=== PATIENT | female | born 1985 | race Caucasian/White ===

== ENCOUNTER 2019-08-19 08:00 | Day surgery (SDC) | payer OTHER ==
[2019-08-15 15:01] LABS: BASOPHILS 0.2 % (0-2); EOSINOPHILS 0.9 % (0-7); HEMATOCRIT 31.5 % (36.0-48.0); HEMOGLOBIN 9.1 g/dL (12-16); IMMATURE GRANULOCYTES 0.2 % (0-5); LYMPHOCYTES 31.4 % (15-50); MCH 21.2 pg (26.0-34.0); MCHC 28.9 g/dL (31.0-37.0); MCV 73.3 fL (80.0-100.0); MEAN PLATELET VOLUME 10.6 fL (7.4-10.4); MONOCYTES 6.5 % (2-11); NEUTROPHILS 60.8 % (40-80); PLATELET COUNT 236 10x3/uL (130-400); RDW 16.7 % (11.5-14.5); WBC 6.3 10x3/uL (4.8-10.8)
[~2019-08-19] VITALS: Ht 165.1 cm; Wt 65.3 kg
--- NOTE | ~2019-08-19 | OP ---
PATIENT NAME: EBENEZER LEMUS MEDICAL RECORD: [id number] :83 LOCATION:D[facility] ADMISSION DATE: SURGEON: LELA KELLER MD DATE OF OPERATION: 08/19/2019 PREOPERATIVE DIAGNOSIS: Dysfunctional uterine bleeding. POSTOPERATIVE DIAGNOSIS: Dysfunctional uterine bleeding. PROCEDURES: 1. Hysteroscopy with dilation and curettage. 2. Uterine ablation using a NovaSure device. SURGEON: Lela Keller MD ANESTHESIOLOGIST: Dr. Escalante. ANESTHESIA: General. FINDINGS: Uterus sounds to 9 cm with uterine sound. Lush endometrium was encountered at the time of hysteroscopy and moderate tissue returned at the time of curettage. NovaSure therapy for 1 minute and 21 seconds. SPECIMENS REMOVED: Endometrial curettings. SPECIMEN DISPOSITION: Pathology. ESTIMATED BLOOD LOSS: Minimal. FLUIDS: 800 cc lactated Ringer's. URINE OUTPUT: Quantity sufficient void prior to this procedure. COMPLICATIONS: None. DRAINS: None. INDICATIONS: The patient is a 33-year-old female with dysfunctional uterine bleeding. The patient has attempted conservative therapy without success. The patient was consented for a dilation and curettage with ablation for treatment of dysfunctional uterine bleeding. DESCRIPTION OF PROCEDURE: After informed consent was assured, the patient was taken to the operating room where anesthetic was obtained. The patient was placed in Yellofin stirrups and prepped and draped. The speculum was introduced in the vagina and the cervix grasped with a single-tooth tenaculum and dilated to accommodate a diagnostic hysteroscope. This was passed easily to the fundus with visualization of both ostia and the full uterine cavity. No polypoid masses are identified and a lush endometrium was encountered. The hysteroscopy was now discontinued and the cervix further dilated. The dilation accommodates a #1 curette, which was passed easily to the fundus. Pressure was applied against the uterine wall as it was withdrawn and good cry was obtained throughout the uterus. The specimen was passed off the field. The NovaSure device was now inspected. A NovaSure sound was used to obtain the cavity depth of 6.5 cm. The device was now inserted and the array exposed with the width OPERATIVE REPORT [id number] EBENEZER LEMUS found to be 4 cm. These numbers were programmed into the NovaSure device. The test sequence was performed successfully. Therapy was initiated and completed after 1 minute and 21 seconds. The device was now removed and the single tooth tenaculum taken from the cervix. Some bleeding was noted from the puncture site and this was made hemostatic by placing a ring forceps for a few moments. Sponge, lap, and needle counts correct times 2. The patient was awakened and went to the recovery area in stable condition. TRANSINT:[id number] Voice Confirmation ID: [id number] DOCUMENT ID: [id number] LELA KELLER MD CC: [id number] DICTATION DATE: 08/19/19 1347 LOOM TECHNICIAN: 08/19/[address] [facility] [address] [id number]
[~2019-08-19 08:00] MED LIST: ASCORBIC ACID500 MG PO; BUSPAR5 MG PO; FERROUS SULFAT325 MG PO; PROTONIX40 MG PO; PROZAC20 MG PO
[2019-08-19 08:29] LABS: HCG URINE NEGATIVE (NEGATIVE)
[2019-08-19 08:40] VITALS: BP 104/64; Ht 165.1 cm; Wt 65.3 kg
--- NOTE | 2019-08-19 15:24 | NUR ---
DC INSTRUCTIONS GIVEN TO PT. STATES UNDERSTANDING. DC'D IV CATH FULLY INTACT.
--- NOTE | 2019-08-19 15:57 | NUR ---
PT LEFT UNIT VIA WC AT 1350
== END 2019-08-19 15:50 | disposition home or self-care (01) ==
LOC: D.OPS 08:00 → D.PAN 10:00 → D.OPS 10:00
PROVIDERS: ATTEND Obstetrics & Gynecology
DX: N93.8 Other specified abnormal uterine and vaginal bleeding (principal); J45.909 Unspecified asthma, uncomplicated; N92.0 Excessive and frequent menstruation with regular cycle; D64.9 Anemia, unspecified